=== PATIENT | female | born 2000 ===

== ENCOUNTER 2021-10-02 21:28 | Inpatient (IN) | payer OTHER ==
[~2021-10-02] VITALS: Ht 162.6 cm; Wt 80.7 kg
[2021-10-02] MEDS ORDERED: PRENATAL + DHA1 EAC1 PO (21:59)
== END 2021-10-05 15:16 | DRG 807 ==
LOC: OBS/DEL 21:28 → OB/GYN 10-03 08:27 → OBS/DEL 10-03 08:27 → LDR 10-03 08:27 → OB/GYN 10-03 19:16
PROVIDERS: ADMIT Obstetrics & Gynecology; ATTEND Obstetrics & Gynecology
PROC: 10E0XZZ Delivery of Products of Conception, External Approach (ICD-10-PCS; principal; 2021-10-03)
PROC: 0KQM0ZZ Repair Perineum Muscle, Open Approach (ICD-10-PCS; 2021-10-03)
PROC: 4A1HXCZ Monitoring of Products of Conception, Cardiac Rate, External Approach (ICD-10-PCS; 2021-10-03)
DX: O70.1 Second degree perineal laceration during delivery (principal); Z37.0 Single live birth; Z3A.39 39 weeks gestation of pregnancy; Z20.822 Contact with and (suspected) exposure to COVID-19

== ENCOUNTER 2022-09-21 15:16 | Outpatient (CLI) | payer OTHER ==
[~2022-09-21 15:16] MED LIST: PRENATAL + DHA1 EAC1 PO
== END 2022-09-21 17:09 | disposition home or self-care (01) ==
LOC: PRENATAL 15:16
PROVIDERS: ATTEND Obstetrics & Gynecology Maternal & Fetal Medicine
DX: O35.9XX0 Maternal care for (suspected) fetal abnormality and damage, unspecified, not applicable or unspecified (principal); O35.3XX0 Maternal care for (suspected) damage to fetus from viral disease in mother, not applicable or unspecified; Z3A.23 23 weeks gestation of pregnancy

== ENCOUNTER 2022-11-21 14:07 | Outpatient (CLI) | payer OTHER | END 2022-11-21 16:00 | disposition home or self-care (01) | LOC: PRENATAL 14:07 | PROVIDERS: ATTEND Obstetrics & Gynecology Maternal & Fetal Medicine | DX: O26.849 Uterine size-date discrepancy, unspecified trimester (principal); O35.9XX0 Maternal care for (suspected) fetal abnormality and damage, unspecified, not applicable or unspecified; O35.3XX0 Maternal care for (suspected) damage to fetus from viral disease in mother, not applicable or unspecified; Z3A.32 32 weeks gestation of pregnancy ==

== ENCOUNTER 2022-12-10 06:02 | Inpatient (IN) | payer OTHER ==
[~2022-12-10] VITALS: Ht 152.4 cm; Wt 2.3 kg
[2022-12-10] MEDS ORDERED: PRENATAL TABLE1 EAC1 PO (06:34)
== END 2022-12-12 13:19 | disposition home or self-care (01) | DRG 807 ==
LOC: OB/GYN 06:02 → LDR 06:02 → OB/GYN 12:05
PROVIDERS: ADMIT Obstetrics & Gynecology; ATTEND Obstetrics & Gynecology
PROC: 10E0XZZ Delivery of Products of Conception, External Approach (ICD-10-PCS; principal; 2022-12-10)
PROC: 4A1HXCZ Monitoring of Products of Conception, Cardiac Rate, External Approach (ICD-10-PCS; 2022-12-10)
DX: O60.14X0 Preterm labor third trimester with preterm delivery third trimester, not applicable or unspecified (principal); Z37.0 Single live birth; Z3A.34 34 weeks gestation of pregnancy; Z20.822 Contact with and (suspected) exposure to COVID-19